=== PATIENT | male | born 1990 | race Caucasian/White ===

== ENCOUNTER 2021-02-03 14:38 | Emergency (ER) | payer OTHER, SELFPAY ==
[2021-02-03 14:52] VITALS: BP 131/81; PULSE 108; RESP 18; TEMP 36.8; O2SAT 98
--- NOTE | 2021-02-03 15:13 | ED.URI ---
HPI - URI/Sore Throat General Chief Complaint: Upper Respiratory Infection Stated Complaint: Headache,Body Aches,Fever,Sore Throat Time Seen by Provider: 02/03/21 15:00 Source: patient, family and RN notes reviewed Mode of arrival: ambulatory Limitations: no limitations History of Present Illness HPI Narrative: 30-year-old male presents to the [facility] with with complaints of a sore throat x1 week. Has felt feverish over the last week. Developed a headache yesterday. has taken Tylenol and OTC cold medications. reports that that he has been sick in bed for 2 days. Reports intermittent nausea Denies chest pain or abdominal pain. No cough. Denies vomiting or diarrhea. Denies any change in vision or blurry vision. Denies shortness of breath. patient Covid vaccinated nor has had Covid. MD elicited complaint: sore throat Related Data Home Medications Medication Instructions Recorded Confirmed calcium polycarbophil 625 mg tablet 1,250 mg PO BID 07/08/19 02/03/21 Allergies Allergy/AdvReac Type Severity Reaction Status Date / Time No Known Allergies Allergy Verified 02/03/21 14:52 Review of Systems Review of Systems: All systems reviewed & are unremarkable except as noted in HPI and below Constitutional: Constitutional: Reports no additional constitutional complaints, Denies chills and Denies fever(s) Eyes: Eyes: Reports no additional eye complaints ENT: Reports as per HPI and Reports sore throat Cardiovascular: Cardiovascular: Reports no additional cardiovascular complaints and Denies chest pain Respiratory: Respiratory: Reports no additional respiratory complaints, Denies chest congestion, Denies cough, Denies dyspnea and Denies wheezing Gastrointestinal: Gastrointestinal: Reports as per HPI, Denies abdominal pain and Denies nausea Musculoskeletal: Musculoskeletal: Reports no additional musculoskeletal complaints Integumentary/Breasts: Skin/Breast: Reports system reviewed and no additional complaints, except as docu Neurologic: Reports system reviewed and no additional complaints, except as documented Psychiatric: Psychiatric: Reports no additional psychiatric complaints Allergic/Immunologic: Allergic/Immunologic: Reports no additional allergic/immunologic complaints PMFSH Past Medical History Medical History (Updated 02/03/21 @ 15:43 by Grace Linares) Depression Gastroesophageal reflux disease without esophagitis Irritable bowel syndrome with diarrhea Surgical History Surgical History (Updated 02/03/21 @ 15:29 by Grace Linares) No significant past surgical history Social History Social History Smoking status: Former smoker Second hand tobacco smoke exposure: No Smoking end date: 03/02/06 Alcohol intake: current Substance use: never Substance use type: does not use Gender identity (if verbalized by the patient): Male Comments At the time of my signature, I reviewed and agree with the nursing past medical, surgical, social, and family history. There is no relevant family history pertinent to the patient complaint. Exam Const: General: no acute distress, alert and ill appearing acutely Nutritional Appearance: well nourished Orientation/consciousness: patient oriented x3 Limitations: no limitations HENMT: Head: normal to inspection Ears: external ears normal, TM's normal bilaterally and EAC's normal Eyes: Conjunctivae: conjunctivae normal Pupils: Equal, round and reactive pupils present Neck: Neck: normal visual inspection, no lymphadenopathy and no meningeal signs Chest: Chest palpation & inspection: normal inspection of the chest Resp: Effort & Inspection: normal respiratory effort and no use of accessory muscles Auscultation: clear to auscultation bilaterally, no crackles, no rales, no rhonchi and no wheezes Cardio: Rate: regular rate Rhythm: regular rhythm GI: GI Palp: Yes Soft to palpation and No Tender
[2021-02-03] MEDS: KETOROLAC (*BKC) 60 MG/2 ML VIAL IM (15:47)
[2021-02-04 19:11] LABS: SARS-CoV-2 RNA PCR Negative
== END 2021-02-03 16:03 | disposition home or self-care (01) ==
PROVIDERS: Emergency Provider Nurse Practitioner; PCP Family Medicine
DX: B34.9 Viral infection, unspecified (principal); R11.0 Nausea; R51.9 Headache, unspecified; Z20.822 Contact with and (suspected) exposure to COVID-19; Z87.891 Personal history of nicotine dependence; K21.9 Gastro-esophageal reflux disease without esophagitis
CPT/HCPCS: 87081; 87804; 87880; 99213; C9803; G0463; J1885; U0003; U0005

== ENCOUNTER 2021-02-05 13:43 | Outpatient (CLI) | payer OTHER, SELFPAY ==
[2021-02-05 13:56] LABS: Hematocrit 44.7 % (42.0-52.0); Hemoglobin 15.3 g/dL (14.0-18.0); Mean Corpuscular HGB Conc 34.2 g/dl (32-36); Mean Corpuscular Hemoglobin 30.7 pg (26-34); Mean Corpuscular Volume 89.8 fl (80-100); Mean Platelet Volume 9.5 fl (7.4-10.4); Platelet Count Result 155 k/mm3 (150-375); Red Blood Count 4.98 M/mm3 (4.6-6.20); Red Cell Distribution Width 12.5 % (11.5-14.5); White Blood Count 2.7 K/mm3 (4.5-10.0)
[2021-02-05 14:07] LABS: Anion Gap 6 mmol/L (8-16); Blood Urea Nitrogen 21 mg/dL (9-20); Calcium 8.8 mg/dL (8.4-10.2); Carbon Dioxide 32 mmol/L (22-30); Chloride 99 mmol/L (98-107); Estimated Glomerular Filt Rate > 60; Glucose 104 mg/dL (65-110); Potassium 3.9 mmol/L (3.4-5.0); Sodium 137 mmol/L (137-145)
[2021-02-05 15:05] LABS: Band Neutrophils Percent 8 % (0-6); Lymphocytes Absolute Manual 0.91 K/mm3 (1.1-4.5); Monocytes Absolute Manual 0.56 K/mm3 (0.1-0.90); Monocytes Percent Manual 21 % (3-9); Neutrophils Absolute Manual 1.21 K/mm3 (1.3-6.7); Neutrophils Percent Manual 37 % (46-73); Total Cells Counted 100
[2021-02-05 15:08] LABS: Platelet Estimate Adequate (Adequate)
[2021-02-05 15:09] LABS: Atypical Lymphocytes Present
== END 2021-02-05 13:44 | disposition home or self-care (01) ==
LOC: ANHLAB 13:45
PROVIDERS: PCP Family Medicine; Visit Provider Physician Assistant
DX: R50.9 Fever, unspecified (principal); R69 Illness, unspecified; E86.0 Dehydration
CPT/HCPCS: 36415; 80048; 85025

== ENCOUNTER 2021-02-07 17:07 | Outpatient (CLI) | payer OTHER, SELFPAY ==
--- NOTE | ~2021-02-07 | XR_ITS ---
EXAMINATION: XR chest 2V DATE: 02/07/2021 17:24 INDICATION: Other general symptoms and signs. TECHNIQUE: Frontal and lateral views of the chest were obtained. COMPARISON: CT abdomen and pelvis 06/15/2015 FINDINGS: The chest demonstrates clear lungs without pneumonia, pleural effusion, or pneumothorax. Th e heart size is normal. IMPRESSION: 1. No acute cardiopulmonary disease. Reviewed, dictated and finalized at location A. 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
== END 2021-02-07 17:08 | disposition home or self-care (01) ==
LOC: ANHIMG 17:13
PROVIDERS: PCP Family Medicine; Visit Provider Physician Assistant
DX: R09.89 Other specified symptoms and signs involving the circulatory and respiratory systems (principal); R50.9 Fever, unspecified; R42 Dizziness and giddiness
CPT/HCPCS: 71046

== ENCOUNTER → 2021-02-08 08:37 | Outpatient (CLI) | payer OTHER, SELFPAY ==
[2021-02-08 19:26] LABS: SARS-CoV-2 RNA PCR Negative
== END ==
PROVIDERS: Physician Assistant; PCP Family Medicine; Visit Provider Family Medicine
DX: R68.89 Other general symptoms and signs (principal); R50.9 Fever, unspecified; Z20.822 Contact with and (suspected) exposure to COVID-19
CPT/HCPCS: C9803; U0003; U0005

== ENCOUNTER 2021-02-08 18:03 | Emergency (ER) | payer OTHER, SELFPAY ==
[2021-02-08 18:07] VITALS: BP 124/75; PULSE 93; RESP 20; TEMP 36.1; O2SAT 98
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
--- NOTE | 2021-02-08 20:52 | PC.NURSE ---
pt. to desk asking for update. RN informed pt. unable to determine that at this time. pt. states we are going to leave. pt. amb out of ed w/ steady gait. NAD.
== END 2021-02-09 04:50 | disposition left against medical advice (07) ==
PROVIDERS: PCP Family Medicine
DX: R50.9 Fever, unspecified (principal)
CPT/HCPCS: 99199

== ENCOUNTER 2022-01-29 23:28 | Emergency (ER) | payer OTHER, SELFPAY ==
[2022-01-29 23:51] VITALS: BP 116/68; PULSE 80; RESP 16; TEMP 36.4; O2SAT 99
[2022-01-30 01:00] VITALS: O2SAT 100
[2022-01-30 01:01] VITALS: BP 113/84; O2SAT 100
[2022-01-30 01:08] LABS: Basophils Percent Auto 0.2 % (0.2-1.2); Eosinophils Absolute Auto 0.2 K/mm3 (0-0.3); Eosinophils Percent Auto 2.2 % (0-4.4); Hematocrit 41.9 % (42.0-52.0); Hemoglobin 14.5 g/dL (14.0-18.0); Immature Granulocyte Absolute 0.02 K/mm3 (0.00-0.031); Immature Granulocyte Percent A 0.2 % (0-0.5); Lymphocytes Absolute Auto 1.31 K/mm3 (0.9-3.2); Lymphocytes Percent Auto 15.8 % (18.3-44.2); Mean Corpuscular HGB Conc 34.6 g/dl (32-36); Mean Corpuscular Hemoglobin 30.7 pg (26-34); Mean Corpuscular Volume 88.8 fl (80-100); Mean Platelet Volume 8.9 fl (7.4-10.4); Monocytes Absolute Auto 0.8 K/mm3 (0.1-0.6); Monocytes Percent Auto 9.7 % (2.6-8.5); Neutrophils Absolute Auto 5.9 K/mm3 (1.3-6.7); Neutrophils Percent Auto 71.9 % (45.5-73.1); Platelet Count Result 234 k/mm3 (150-375); Red Blood Count 4.72 M/mm3 (4.6-6.20); Red Cell Distribution Width 12.6 % (11.5-14.5); White Blood Count 8.3 K/mm3 (4.5-10.0)
[2022-01-30 01:16] VITALS: O2SAT 99
[2022-01-30 01:18] LABS: Alanine Aminotransferase 19 U/L (6-50); Albumin Level 4.3 g/dL (3.5-5.1); Alkaline Phosphatase 75 U/L (38-126); Anion Gap 8 mmol/L (8-16); Aspartate Amino Transferase 28 U/L (17-59); Bilirubin,Total 0.5 mg/dL (0.2-1.3); Blood Urea Nitrogen 18 mg/dL (9-20); Calcium 8.6 mg/dL (8.4-10.2); Carbon Dioxide 28 mmol/L (22-30); Chloride 102 mmol/L (98-107); Estimated CRCL calculation 137 ml/min; Estimated Glomerular Filt Rate > 60; Glucose 97 mg/dL (65-110); Lipase 91 U/L (23-300); Potassium 3.5 mmol/L (3.4-5.0); Sodium 138 mmol/L (137-145)
--- NOTE | 2022-01-30 01:19 | ED.ABDPAIN ---
HPI - Abdominal Pain General Chief Complaint: Abdominal Pain Stated Complaint: abdominal pain around belly button Time Seen by Provider: 01/30/22 00:56 History of Present Illness HPI narrative: Patient is a 31-year-old male with a history of IBS here for evaluation of periumbilical abdominal cramping. Patient states the pain began this morning, has been relatively constant since, but does have periods where it gets worse. Patient has not attempted any medicine for his pain. He decided to come to the ED due to persistence of his pain and he had an episode of vomiting nonbloody/nonbilious emesis earlier today. His last bowel movement was today and was reportedly small in caliber but nonbloody. No fevers, chills. He has never had a surgery on his abdomen, has had numerous CT scans of his abdomen and a colonoscopy that have been normal. Related Data Home Medications Medication Instructions Recorded Confirmed calcium polycarbophil 625 mg 1,250 mg PO BID 07/08/19 02/05/21 tablet (FiberCon) Allergies Allergy/AdvReac Type Severity Reaction Status Date / Time No Known Allergies Allergy Verified 01/30/22 00:53 Review of Systems Review of Systems: Gen: Denies fevers or chills Eyes: Denies eye pain or visual change ENT: Denies congestion Respiratory: Denies shortness of breath or cough CV: Denies chest pain or palpitations GI: Reports abdominal pain, nausea and vomiting. : denies burning, urgency, frequency or hematuria Musculoskeletal: Denies back pain or muscle pain Neuro: Denies numbness, tingling, weakness or focal weakness Skin: Denies rash Except as documented, all other systems reviewed and negative [facility] Past Medical History Medical History Depression Gastroesophageal reflux disease without esophagitis Irritable bowel syndrome with diarrhea Surgical History Surgical History No significant past surgical history Social History Social History (Updated 05/08/21 @ 10:30 by Alicia Matias MA) Smoking status: Never smoker Second hand tobacco smoke exposure: No Smoking end date: 03/02/06 Alcohol intake: current Drinks per week: 7 Substance use: never Substance use type: does not use Gender identity (if verbalized by the patient): Male Exam Narrative: APPEARANCE: Well appearing, no pain in distress, well-nourished. Head: Normocephalic and atraumatic. EYES: PERRLA/EOMI, conjunctivae clear NOSE: No nasal drainage EARS: External ear normal in appearance THROAT: Oropharynx is clear. Mucous membranes are moist. NECK: Supple. No adenopathy, no masses. RESPIRATORY: Airway patent, respirations nonlabored. Clear to auscultation bilaterally, no rales, rhonchi, wheezing. CARDIOVASCULAR: Regular rate and rhythm without murmurs, rubs, or gallops. ABDOMINAL: Normoactive bowel sounds. Soft, nontender, nondistended. No rebound tenderness or guarding. MUSCULOSKELETAL: Extremities are warm and well-perfused. Moves all extremities well. No edema. NEURO: Normal speech. No focal neurologic deficits. SKIN: Skin is warm and dry. No rashes. PSYCHIATRIC: Normal affect/mood. Course Vital Signs Vital signs: Vital Signs Temperature 97.5 F L 01/29/22 23:51 Pulse Rate 80 01/29/22 23:51 Respiratory Rate 16 01/29/22 23:51 Blood Pressure 116/68 01/29/22 23:51 Pulse Oximetry 99 01/29/22 23:51 Oxygen Delivery Room Air 01/29/22 23:51 Temperature 97.5 F L 01/29/22 23:51 Pulse Rate 80 01/29/22 23:51 Respiratory Rate 16 01/29/22 23:51 Blood Pressure 116/68 01/29/22 23:51 Pulse Oximetry 99 01/29/22 23:51 Oxygen Delivery Room Air 01/29/22 23:51 MDM - Abdominal Pain MDM Narrative Medical decision making narrative: 31-year-old male here for evaluation of crampy periumbilical abdominal pain over the past day. He has a history of IBS and has had
[2022-01-30 01:30] VITALS: O2SAT 96
[2022-01-30] MEDS: SODIUM CHLORIDE 0.9% IV 1,000 ML 999 ML IV CONT (01:43)
[2022-01-30] MEDS: ONDANSETRON INJ 4 MG/2 ML VIAL IV PUSH (01:44)
[2022-01-30] MEDS: DICYCLOMINE HCL INJ 20 MG/2 ML VIAL IM (01:47)
[2022-01-30 01:57] LABS: Appearance Urine Clear (Clear); Bilirubin Urine Negative (Negative); Blood Urine Negative (Negative); Color Urine Yellow (Yellow); Glucose Urine UA Negative (Negative); Ketones Urine 1+ mg/dL (Negative); Leukocyte Esterase Ur Negative LEU/UL (Negative); Nitrate Urine Negative (Negative); Protein Urine Negative (Negative); Urobilinogen Urine 0.2 mg/dL (<2.0)
[2022-01-30 02:03] LABS: Mucus Urine Rare /lpf; WBC Urine 0-3 /hpf
[2022-01-30 02:10] LABS: Add Urine Microscopic? YES
== END 2022-01-30 03:11 | disposition home or self-care (01) ==
PROVIDERS: Emergency Medicine; Emergency Provider Emergency Medicine; PCP Family Medicine
DX: K58.9 Irritable bowel syndrome, unspecified (principal); F32.9 Major depressive disorder, single episode, unspecified; K21.9 Gastro-esophageal reflux disease without esophagitis
CPT/HCPCS: 36415; 80053; 81001; 83690; 85025; 96361; 96372; 96374; 99284; J0500; J2405; J7030

== ENCOUNTER 2023-03-18 11:33 | Outpatient (CLI) | payer OTHER, SELFPAY ==
[2023-03-18 12:23] LABS: Influenza A QL RT-PCR Negative (Negative); Influenza B QL RT-PCR Negative (Negative); RSV RNA, RT-PCR Negative (Negative); SARS-CoV-2 RNA PCR Negative (Negative)
== END 2023-03-18 11:34 | disposition home or self-care (01) ==
LOC: ANHLAB 11:34
PROVIDERS: PCP Family Medicine; Visit Provider Physician Assistant
DX: J02.9 Acute pharyngitis, unspecified (principal); Z20.822 Contact with and (suspected) exposure to COVID-19
CPT/HCPCS: 87637

== ENCOUNTER 2024-09-22 06:36 | Outpatient (CLI) | payer OTHER, SELFPAY ==
--- OUTSIDE RECORDS SUMMARY | 2024-09-22 06:39 | XMS_ITS | Clinical Summary ---
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 Pulse 70 03/09/2014 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 Temperature - - Respiratory Rate - - Oxygen Saturation - - Inhaled Oxygen Concentration - - Weight 98.4 kg (217 lb) 03/09/2014 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 Height 183.5 cm (6' 0.25) 03/09/2014 2:29 PM CS T Body Mass Index 29.23 03/09/2014 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 Plan of Treatment Health Maintenance Due Date Last Done Comments Annual Physical 06/19/1991 Hepatitis C 2006 DTaP, Tdap and Td Vaccines ( 1 - Tdap) 06/19/2007 Hepatitis B Vaccines (1 of 3 - 19+ 3-dose series) 06/19/2007 HPV Vaccines (1 - 3-dose SCD M series) 06/19/2015 COVID-19 Vaccine ( - 2023-2 5 season) 2023 Meningococcal B Vaccine Aged Out No l onger eligible based on patient's age to complete this topic Meningococcal Vaccine Aged Out No elicia chance eligible based on patient's age to complete this topic Pneumococcal Vaccine: Pediat rics (0 to 5 Years) and At-Risk Patients (6 to 49 Years) Aged Out No longer eligible b ased on patient's age to complete this topic RSV Immunizations Under 20 Months Aged Out No longer eligible based on patient's age to complete this topic
[2024-09-22 07:20] LABS: Hematocrit 43.5 % (42.0-52.0); Hemoglobin 14.6 g/dL (14.0-18.0); Mean Corpuscular HGB Conc 33.6 g/dl (32-36); Mean Corpuscular Hemoglobin 29.3 pg (26-34); Mean Corpuscular Volume 87.3 fl (80-100); Platelet Count Result 246 k/mm3 (150-375); Red Blood Count 4.98 M/mm3 (4.6-6.20); White Blood Count 7.2 K/mm3 (4.5-10.0)
[2024-09-22 07:38] LABS: Alanine Aminotransferase 19 U/L (6-50); Albumin Level 4.4 g/dL (3.5-5.1); Alkaline Phosphatase 73 U/L (38-126); Anion Gap 8 mmol/L (4-12); Aspartate Amino Transferase 31 U/L (17-59); Bilirubin,Total 0.7 mg/dL (0.2-1.3); Blood Urea Nitrogen 19 mg/dL (9-20); Calcium 9.4 mg/dL (8.4-10.2); Carbon Dioxide 27 mmol/L (22-30); Chloride 102 mmol/L (98-107); Estimated Glomerular Filt Rate > 60; Glucose 88 mg/dL (65-110); Potassium 3.9 mmol/L (3.4-5.0); Sodium 137 mmol/L (137-145); Total Protein 7.8 g/dL (6.3-8.2)
[2024-09-22 08:09] LABS: Thyroid Stimulating Hormone 1.600 uIU/mL (0.465-4.680)
== END 2024-09-22 06:37 | disposition home or self-care (01) ==
LOC: ANHLAB 06:37
PROVIDERS: PCP Family Medicine; Visit Provider Physician Assistant Medical
DX: K21.9 Gastro-esophageal reflux disease without esophagitis (principal); K58.0 Irritable bowel syndrome with diarrhea
CPT/HCPCS: 36415; 80053; 84443; 85027

== ENCOUNTER 2025-02-22 10:26 | Emergency (ER) | payer OTHER, SELFPAY ==
[2025-02-22 10:48] VITALS: BP 123/82; PULSE 81; RESP 16; TEMP 36.5; O2SAT 99
--- NOTE | 2025-02-22 11:20 | ED.URI ---
HPI - URI/Sore Throat General Chief Complaint: Upper Respiratory Infection Stated Complaint: Cold Symptoms Source: patient Mode of arrival: ambulatory Limitations: no limitations History of Present Illness HPI Narrative: 34-year-old male presented for complaint of nasal congestion drainage, sinus pressure, and cough. Onset of. Patient was given Tessalon Perles and Flonase for symptoms; also taking Mucinex. He denies shortness of breath, wheezing, nausea, vomiting diarrhea, fevers or lethargy. Related Data Home Medications ?Medication ?Instructions ?Recorded ?Confirmed ?Last Taken ?Type calcium polycarbophil 625 mg 1,250 mg PO QHS 02/04/22 01/20/25 Unknown History tablet (FiberCon) budesonide 160 mcg-glycopyr 9 2 inh inhalation BID 01/20/25 01/20/25 Unknown History mcg-formot 4.8 mcg/actuation HFA inhaler (Breztri Aerosphere) Allergies Allergy/AdvReac Type Severity Reaction Status Date / Time No Known Allergies Allergy Verified 01/20/25 15:20 Review of Systems Review of Systems: per HPI All systems reviewed & are unremarkable except as noted in HPI and below PMFSH Past Medical History Medical History Depression Gastroesophageal reflux disease without esophagitis Irritable bowel syndrome with diarrhea Surgical History Surgical History No significant past surgical history Social History Social History Smoking status: Never smoker Second hand tobacco smoke exposure: No Smoking end date: 03/02/06 Alcohol intake: current Drinks per week: 7 Substance use: never Substance use type: does not use Living arrangements: with family Occupation/Education: occupation Gender identity (if verbalized by the patient): Male Comments At time of signature, I have reviewed and agree with nursing past medical, surgical, social and family history unless otherwise noted. Please see nursing chart for further information. There is no relevant family history pertinent to the presenting complaint Exam Narrative: GENERAL: Well-appearing, in no acute distress. EYES: EOMI. No redness or drainage. Conjunctivae normal. ENT: Mucous membranes pink and moist. No rhinorrhea. TMs normal bilaterally. Throat normal. Uvula midline. NECK: Normal AROM. Supple. CHEST: No respiratory distress. lungs clear to all lambert. 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 HEART: Regular rate and rhythm. No murmur appreciated. ABDOMEN: Soft, nontender, nondistended, normal active bowel sounds. SKIN: Warm, dry, no rash. Capillary refill normal. Normal skin turgor. NEURO: Alert and oriented x3. Gait steady. PSYCH: Normal affect. Course Course Level of Care: Express Care Visit Vital Signs Vital signs: Vital Signs Temperature 97.7 F 02/22/25 10:48 Pulse Rate 81 02/22/25 10:48 Respiratory Rate 16 02/22/25 10:48 Blood Pressure 123/82 02/22/25 10:48 Pulse Oximetry 99 02/22/25 10:48 Temperature 97.7 F 02/22/25 10:48 Pulse Rate 81 02/22/25 10:48 Respiratory Rate 16 02/22/25 10:48 Blood Pressure 123/82 02/22/25 10:48 Pulse Oximetry 99 02/22/25 10:48 MDM MDM Narrative Medical decision making narrative: Discussed physical exam findings. Reviewed prescriptions antibiotic and steroid. Advised supportive measures and signs/symptoms to go to the ER. Pt is appropriate for outpt treatment and f/u. Differential Diagnosis Differential Diagnosis: Influenza, covid, sinusitis, OM, strep pharyngitis, URI, bronchitis, pneumonia Discharge Plan Discharge Clinical Impression: Bronchitis Patient Disposition: Home Condition: Stable Instructions: Antibiotic Form, Acute Bronchitis (ED) Additional Instructions: Avoid crowds until you do not have a fever and symptoms are improved Take medication as directed Recommend Flonase spray and Zyrtec (or Claritin/Donna) counter Cough syrup (Delsym) may cause drowsiness; avoid driving or take it at night time. Tylenol every 8 hours as needed for pain Symptomatic treatment includes: rest, fluids, and increase humidity of the air at home. Follow up with your primary care provider as needed in 1 week Go to the ER for worsening symptoms or concerns Patient Language: Luxembourgish Prescriptions: New methylprednisolone [Medrol (Laith)] 4 mg tablets,dose pack See Rx Instructions .ROUTE .COMPLEX Qty: 21 0RF Rx Instructions: orally per package directions amoxicillin-pot clavulanate 875-125 mg tablet 1 tablet PO Q12H 7 Days Qty: 14 0RF No Action esomeprazole magnesium [Nexium] 20 mg capsule,delayed release(DR/EC) 20 mg PO DAILY Qty: 90 1RF calcium polycarbophil [FiberCon] 625 mg tablet 1,250 mg PO QHS Breztri Aerosphere 160-9-4.8 mcg/actuation HFA aerosol inhaler 2 inh inhalation BID Patient Comments: sample provided at appt today dicyclomine 20 mg tablet 20 mg PO QID PRN (Reason: abdominal discomfort) Qty: 30 0RF azelastine 137 mcg (0.1 %) aerosol,spray See Rx Instructions .ROUTE .COMPLEX Qty: 60 0RF Dose Instruction: USE ONE SPRAY IN EACH NOSTRIL EVERY 12 HOURS Rx Instructions: USE ONE SPRAY IN EACH NOSTRIL EVERY 12 HOURS amitriptyline 25 mg tablet See Rx Instructions .ROUTE .COMPLEX Qty: 90 1RF Dose Instruction: TAKE 1 TABLET BY MOUTH AT BEDTIME Rx Instructions: TAKE 1 TABLET BY MOUTH AT BEDTIME fluticasone propionate 50 mcg/actuation spray,suspension 1 spray intranasal DAILY Qty: 16 0RF Rx Instructions: administer into each nostril benzonatate 100 mg capsule 200 mg PO TID PRN (Reason: cough) Qty: 60 0RF Follow-up/Referrals: Sameer Bee MD [Primary Care Provider, Family Practice]
== END 2025-02-22 11:43 | disposition home or self-care (01) ==
PROVIDERS: Emergency Provider Nurse Practitioner Family; PCP Family Medicine
DX: J40 Bronchitis, not specified as acute or chronic (principal); K21.9 Gastro-esophageal reflux disease without esophagitis; F32.A Depression, unspecified; Z87.891 Personal history of nicotine dependence
CPT/HCPCS: 99213; G0463